=== PATIENT | female | born 1975 | race Caucasian/White ===

== ENCOUNTER → 2019-02-28 | Outpatient (CLI) | payer BC | LOC: COL.RAD 09:52 | DX: M54.5 Low back pain (principal) ==

== ENCOUNTER → 2019-02-28 | Outpatient (CLI) | payer BC | LOC: MHCPAIN 08:33 | DX: M47.817 Spondylosis without myelopathy or radiculopathy, lumbosacral region (principal); M53.3 Sacrococcygeal disorders, not elsewhere classified ==